=== PATIENT | female | born 1995 | race Caucasian/White ===

== ENCOUNTER → 2017-11-19 | Outpatient (CLI) | payer OTHER ==
[2017-11-19 14:36] LABS: HCG,Quantitative Serum <2.4 mIU/mL; T4, Free (Free Thyroxine) 0.78 ng/dL (0.78-2.19)
== END | disposition home or self-care (01) ==
LOC: LABWHC1 13:38
PROVIDERS: ATTEND Obstetrics & Gynecology
DX: N92.6 Irregular menstruation, unspecified (principal); N91.2 Amenorrhea, unspecified
CPT/HCPCS: 36415; 84439; 84443; 84702

== ENCOUNTER → 2018-03-30 | Outpatient (CLI) | payer OTHER ==
--- NOTE | 2018-03-30 12:28 | US ---
EXAMINATION TYPE: Transabdominal DATE OF EXAM: 12/08/17 COMPARISON: NONE CLINICAL HISTORY: Z36 Confirm dates. Patient states positive home test in the beginning of February. No blood work or test done at the doctor's office per patient. EXAM PERFORMED: Transvaginal (TV) and Transabdominal (TA) EXAM MEASUREMENTS: GESTATIONAL AGE / DATING Physician Established: Not yet established Dates by LMP: (8 weeks/1 days) EDC: 11/08/2018 Dates by First Scan: No previous this is first scan Dates by Current Scan for: No IUP seen at this time MATERNAL ANATOMY Uterus: 8.0 x 3.1 x 4.3 cm Right Ovary: 2.8 x 1.6 x 1.7 cm Left Ovary: 3.2 x 1.7 x 2.8 cm Post CDS / Adnexa: Small amount of free fluid visualized within the posterior cul de sac Presence of free fluid: yes Presence of corpus luteal cyst: No Presence of subchorionic bleed: No GESTATION / SURVEY IUP: No IUP seen at this time Date of LMP: 02/01/2018 per patient Beta HcG (if available): Not available at this time No IUP visualized at this time. Endometrium measures 0.7 cm IMPRESSION: No intrauterine gestational sac or evidence of current intrauterine is seen at this time. G iven the patient's history of positive home test considerations remain for ectopic pregnanc y, spontaneous , or early . Correlation with serum beta hCG level is recommended.
== END | disposition home or self-care (01) ==
LOC: RADUSWWP 11:35
PROVIDERS: ATTEND Obstetrics & Gynecology
DX: Z34.80 Encounter for supervision of other normal pregnancy, unspecified trimester (principal); Z36.9 Encounter for antenatal screening, unspecified; Z3A.00 Weeks of gestation of pregnancy not specified
CPT/HCPCS: 36415; 76801; 76817; 84702

== ENCOUNTER → 2018-05-14 | Outpatient (CLI) | payer OTHER | END | disposition home or self-care (01) | LOC: LABWHC1 11:59 | PROVIDERS: ATTEND Obstetrics & Gynecology | DX: N92.6 Irregular menstruation, unspecified (principal) | CPT/HCPCS: 36415; 84702 ==

== ENCOUNTER 2018-07-27 17:07 | Emergency (ER) | payer OTHER ==
[2018-07-27] MEDS ORDERED: SODIUM CHLORIDE 0.9% 500 ML 500 ML IV ONE (17:52)
--- NOTE | 2018-07-27 17:53 | ED ---
Abdominal Pain HPI - General Chief Complaint: Abdominal Pain Stated Complaint: abdominal pain/8 wks preg Source: patient, RN notes reviewed, old records reviewed Mode of arrival: ambulatory Limitations: no limitations - History of Present Illness Initial Comments: Patient is a 23 year old female with vague cramping abdominal pain for one day. She reports no fevers, chills, or other complaints. She is a 7 weeks , and has not followed with OBGYN at this time. She is a Female, OB is Dr. Starkey. She denies vaginal bleeding. She denies vomiting, changes in stools. She reports her pains feel similiar to brxton aguilar contractions, but tates that it is over both sides of lower abdomen. - Related Data Home Medications Medication Instructions Recorded Confirmed Vit No.124/Iron/Folic 1 tab PO DAILY 04/13/15 07/27/18 [ Vitamin Tablet] Venlafaxine HCl ER [Effexor Xr] 37.5 mg PO DAILY 07/27/18 07/27/18 Allergies Allergy/AdvReac Type Severity Reaction Status Date / Time No Known Allergies Allergy Verified 07/27/18 18:01 Review of Systems ROS Statement: Those systems with pertinent positive or pertinent negative responses have been documented in the HPI. ROS Other: All systems not noted in ROS Statement are negative. Past Medical History Past Medical History: No Reported History Additional Past Medical History / Comment(s): OB history: THis is her first and she has had care with me since 7 weeks. O+, abs neg, Rub Imm, RPR Nr, Hep B neg, HIV NR. normal anatomy US, declined quad, abnormal 1hr with normal 3hr GTT. GBS neg. History of Any Multi-Drug Resistant Organisms: None Reported Past Surgical History: Section, Tonsillectomy Additional Past Surgical History / Comment(s): [place] Teeth 2014. Fatty tumor removed from posterior head- childhood Past Anesthesia/Blood Transfusion Reactions: No Reported Reaction Past Psychological History: Anxiety Smoking Status: Former smoker Past Alcohol Use History: None Reported Past Drug Use History: None Reported - Past Family History Mother Family Medical History: Hypertension General Exam - General Exam Comments Initial Comments: Well appearing 23 year old female, no distress. Limitations: no limitations General appearance: alert, in no apparent distress Head exam: Present: atraumatic, normocephalic, normal inspection Eye exam: Present: normal appearance, PERRL, EOMI. Absent: scleral icterus, conjunctival injection, periorbital swelling ENT exam: Present: normal exam, mucous membranes moist Neck exam: Present: normal inspection. Absent: tenderness, meningismus, lymphadenopathy Respiratory exam: Present: normal lung sounds bilaterally. Absent: respiratory distress, wheezes, rales, rhonchi, stridor Cardiovascular Exam: Present: regular rate, normal rhythm, normal heart sounds. Absent: systolic murmur, diastolic murmur, rubs, gallop, clicks GI/Abdominal exam: Present: soft, normal bowel sounds. Absent: distended, tenderness, guarding, rebound, rigid Back exam: Present: normal inspection Neurological exam: Present: alert, oriented X3, CN II-XII intact Course Vital Signs 07/27/18 07/27/18 07/27/18 17:28 19:12 20:01 Temperature 98.4 F 97.8 F 99.1 F Pulse Rate 66 51 L 64 Respiratory 18 14 20 Rate Blood Pressure 126/69 122/73 110/57 O2 Sat by Pulse 99 99 98 Oximetry 07/27/18 20:55 Temperature 99.9 F H Pulse Rate 61 Respiratory 18 Rate Blood Pressure 128/65 O2 Sat by Pulse 98 Oximetry Medical Decision Making - Medical Decision Making 23 year old female, , 7 weeks presents with abodominal cramping for one day. Denies bleeding, discharge, fevers, chills, or changes in stool. She has no tenderness on exam, appears well. Labs obtained, mild leukocytosis noted. Patient has normal UA. No blood or signs of infection. She has Intrauterine gestational sack. HCG is 8,800. O positive blood type. Discussed at this time, no concern for extopic , and that patient can follow up with Dr. Starkey. Return parameters discussed. - Lab Data Result diagrams: 07/27/18 18:07/27/18 18:19 Lab Results 07/27/18 07/27/18 07/27/18 Range/Units 18:19 18:19 18:19 WBC 13.9 H (3.8-10.6) k/uL RBC 4.43 (3.80-5.40) m/uL Hgb 13.7 (11.4-16.0) gm/dL Hct 39.9 (34.0-46.0) % MCV 90.1 (80.0-100.0) fL MCH 30.9 (25.0-35.0) pg MCHC 34.2 (31.0-37.0) g/dL RDW 12.6 (11.5-15.5) % Plt Count 283 (150-450) k/uL Neutrophils % 57 % Lymphocytes % 34 % Monocytes % 4 % Eosinophils % 2 % Basophils % 1 % Neutrophils # 7.9 H (1.3-7.7) k/uL Lymphocytes # 4.7 (1.0-4.8) k/uL Monocytes # 0.6 (0-1.0) k/uL Eosinophils # 0.3 (0-0.7) k/uL Basophils # 0.1 (0-0.2) k/uL PT (9.0-12.0) sec INR (<1.2) APTT (22.0-30.0) sec Sodium 138 (137-145) mmol/L Potassium 4.4 (3.5-5.1) mmol/L Chloride 101 (98-107) mmol/L Carbon Dioxide 28 (22-30) mmol/L Anion Gap 9 mmol/L BUN 15 (7-17) mg/dL Creatinine 0.60 (0.52-1.04) mg/dL Est GFR (CKD-EPI)AfAm >90 (>60 ml/min/1.73 sqM) Est GFR (CKD-EPI)NonAf >90 (>60 ml/min/1.73 sqM) Glucose 92 (74-99) mg/dL Calcium 9.7 (8.4-10.2) mg/dL Total Bilirubin 0.2 (0.2-1.3) mg/dL AST 18 (14-36) U/L ALT 29 (9-52) U/L Alkaline Phosphatase 42 (38-126) U/L Total Protein 6.7 (6.3-8.2) g/dL Albumin 3.9 (3.5-5.0) g/dL HCG, Quant 8708.6 mIU/mL Urine Color Urine Appearance (Clear) Urine pH (5.0-8.0) Ur Specific [place] (1.001-1.035) Urine Protein (Negative) Urine Glucose (UA) (Negative) Urine Ketones (Negative) Urine Blood (Negative) Urine Nitrite (Negative) Urine Bilirubin (Negative) Urine Urobilinogen (<2.0) mg/dL Ur Leukocyte Esterase (Negative) Blood Type O Positive Blood Type Recheck No 07/27/18 07/27/18 Range/Units 18:19 18:19 WBC (3.8-10.6) k/uL RBC (3.80-5.40) m/uL Hgb (11.4-16.0) gm/dL Hct (34.0-46.0) % MCV (80.0-100.0) fL MCH (25.0-35.0) pg MCHC (31.0-37.0) g/dL RDW (11.5-15.5) % Plt Count (150-450) k/uL Neutrophils % % Lymphocytes % % Monocytes % % Eosinophils % % Basophils % % Neutrophils # (1.3-7.7) k/uL Lymphocytes # (1.0-4.8) k/uL Monocytes # (0-1.0) k/uL Eosinophils # (0-0.7) k/uL Basophils # (0-0.2) k/uL PT 10.0 (9.0-12.0) sec INR 1.0 (<1.2) APTT 24.8 (22.0-30.0) sec Sodium (137-145) mmol/L Potassium (3.5-5.1) mmol/L Chloride (98-107) mmol/L Carbon Dioxide (22-30) mmol/L Anion Gap mmol/L BUN (7-17) mg/dL Creatinine (0.52-1.04) mg/dL Est GFR (CKD-EPI)AfAm (>60 ml/min/1.73 sqM) Est GFR (CKD-EPI)NonAf (>60 ml/min/1.73 sqM) Glucose (74-99) mg/dL Calcium (8.4-10.2) mg/dL Total Bilirubin (0.2-1.3) mg/dL AST (14-36) U/L ALT (9-52) U/L Alkaline Phosphatase (38-126) U/L Total Protein (6.3-8.2) g/dL Albumin (3.5-5.0) g/dL HCG, Quant mIU/mL Urine Color Light Yellow Urine Appearance Clear (Clear) Urine pH 6.5 (5.0-8.0) Ur Specific [place] 1.011 (1.001-1.035) Urine Protein Negative (Negative) Urine Glucose (UA) Negative (Negative) Urine Ketones Negative (Negative) Urine Blood Negative (Negative) Urine Nitrite Negative (Negative) Urine Bilirubin Negative (Negative) Urine Urobilinogen <2.0 (<2.0) mg/dL Ur Leukocyte Esterase Negative (Negative) Blood Type Blood Type Recheck Disposition Clinical Impression: Abdominal pain affecting Disposition: HOME SELF-CARE Condition: Good Instructions: Abdominal Pain in (ED) Additional Instructions: Patient advised to s follow-up with PCP and OBGYN. Return to emergency department if any alarming signs or symptoms occur. Is patient prescribed a controlled substance at d/c from ED?: No When asked, does pt state using other controlled substances?: No If opioid is for acute pain is fill amount 7 days or less?: No If Rx opioid, was Start Talking consent form obtained?: No Referrals: Medardo Helms MD [Primary Care Provider] - 1-2 days Sienna Starkey DO [Doctor of Osteopathic Medicine] - 1-2 days Time of Disposition: 20:37
[2018-07-27 18:43] LABS: ALT 29 U/L (9-52); AST 18 U/L (14-36); Albumin 3.9 g/dL (3.5-5.0); Alkaline Phosphatase 42 U/L (38-126); Anion Gap 9 mmol/L; Basophils # (A) 0.1 k/uL (0-0.2); Basophils % (A) 1 %; Blood Urea Nitrogen 15 mg/dL (7-17); Calcium 9.7 mg/dL (8.4-10.2); Carbon Dioxide 28 mmol/L (22-30); Chloride 101 mmol/L (98-107); Eosinophils # (A) 0.3 k/uL (0-0.7); Eosinophils % (A) 2 %; Glucose 92 mg/dL (74-99); HCT 39.9 % (34.0-46.0); HGB 13.7 gm/dL (11.4-16.0); Lymphocytes # (A) 4.7 k/uL (1.0-4.8); Lymphocytes % (A) 34 %; MCH 30.9 pg (25.0-35.0); MCHC 34.2 g/dL (31.0-37.0); MCV 90.1 fL (80.0-100.0); Mean Platelet Volume 7.3; Monocytes # (A) 0.6 k/uL (0-1.0); Monocytes % (A) 4 %; Neutrophils # (A) 7.9 k/uL (1.3-7.7); Neutrophils % (A) 57 %; Partial Thromboplastin Time 24.8 sec (22.0-30.0); Platelet Count 283 k/uL (150-450); Potassium 4.4 mmol/L (3.5-5.1); RBC 4.43 m/uL (3.80-5.40); RDW 12.6 % (11.5-15.5); Sodium 138 mmol/L (137-145); Total Bilirubin 0.2 mg/dL (0.2-1.3); Total Protein 6.7 g/dL (6.3-8.2); WBC 13.9 k/uL (3.8-10.6)
[2018-07-27 19:00] LABS: HCG,Quantitative Serum 8708.6 mIU/mL
[2018-07-27 19:19] LABS: Appearance,Urine Clear (Clear); Bilirubin,Urine Negative (Negative); Blood,Urine Negative (Negative); Color,Urine Light Yellow; Glucose,Urine (UA) Negative (Negative); Ketones,Urine Negative (Negative); Leukocyte Esterase,Urine Negative (Negative); Nitrite,Urine Negative (Negative); PH, Urine 6.5 (5.0-8.0); Protein,Urine Negative (Negative); Specific Gravity,Urine 1.011 (1.001-1.035); Urobilinogen,Urine <2.0 mg/dL (<2.0)
--- NOTE | 2018-07-27 20:30 | US ---
EXAMINATION TYPE: Transabdominal DATE OF EXAM: 12/08/17 COMPARISON: NONE CLINICAL HISTORY: Pain. Cramping EXAM PERFORMED: Transvaginal (TV) and Transabdominal (TA) EXAM MEASUREMENTS: GESTATIONAL AGE / DATING Physician Established: Not yet established Dates by LMP: (7 weeks/1 days) EDC: 06/07/2018 Dates by First Scan: No previous this is first scan Dates by Current Scan for: No IUP seen at this time MATERNAL ANATOMY Uterus: 7.7 x 4.0 x 5.5 cm. Within the fundal endometrial cavity is an anechoic smoohtly-marginated g estational sac measuring 18 x 16 x 13 mm. Right Ovary: 3.3 x 2.4 x 1.8cm Left Ovary: 3.3 x 2.3 x 2.0 cm. Post CDS / Adnexa: wnl Presence of free fluid: no Presence of corpus luteal cyst: yes Presence of subchorionic bleed: no GESTATION / SURVEY MSD: 0.98cm too small to calculate dates. No yolk sac or embryonic pole visualized. Beta HcG (if available): Not available at this time IMPRESSION: POSITIVE FOR INTRAUTERINE GESTATIONAL SAC.
[2018-07-27 20:56] VITALS: BP 128/65; PULSE 61; RESP 18; TEMP 99.9
== END 2018-07-27 20:55 | disposition home or self-care (01) ==
LOC: EC 17:07
DX: O99.89 Other specified diseases and conditions complicating pregnancy, childbirth and the puerperium (principal); R10.31 Right lower quadrant pain; R10.32 Left lower quadrant pain; O99.111 Other diseases of the blood and blood-forming organs and certain disorders involving the immune mechanism complicating pregnancy, first trimester; D72.829 Elevated white blood cell count, unspecified; Z67.40 Type O blood, Rh positive; O99.341 Other mental disorders complicating pregnancy, first trimester; F41.9 Anxiety disorder, unspecified; Z87.891 Personal history of nicotine dependence; Z79.899 Other long term (current) drug therapy; Z3A.01 Less than 8 weeks gestation of pregnancy
CPT/HCPCS: 36415; 76801; 76817; 80053; 81003; 84702; 85025; 85610; 85730; 86900; 86901; 96360; 99284

== ENCOUNTER → 2018-08-10 | Outpatient (CLI) | payer OTHER ==
--- NOTE | 2018-08-10 15:49 | US ---
EXAMINATION TYPE: Transabdominal DATE OF EXAM: 12/08/17 COMPARISON: NONE CLINICAL HISTORY: Z36 Confirm Dates. Confirm dates EXAM PERFORMED: Transabdominal (TA) EXAM MEASUREMENTS: GESTATIONAL AGE / DATING Dates by LMP: (9 weeks/1 days) EDC: 03/14/2019 Dates by Current Scan for: ( 7 weeks/2 days) EDC: 03/27/2019 MATERNAL ANATOMY Uterus: 11.6 x 5.8 x 4.2 cm Right Ovary: 2.8 x 2.2 x 1.7 cm Left Ovary: 3.1 x 1.8 x 2.2 cm Post CDS / Adnexa: no free fluid Presence of free fluid: no Presence of corpus luteal cyst: left ovarian lesion = 1.3 x 1.2 x 1.2 cm Presence of subchorionic bleed: no GESTATION / SURVEY CRL: 10.8 cm (7 weeks/2 days) MSD: seen, not measured Yolk Sac (normal less than 6mm): 2.2 mm Heart Rate: 147 bpm Rhythm: Normal IUP: Viable IUP Date of LMP: 06/07/2018, Beta HcG (if available): Not available at this time GS, YS and CRL seen. Single IUP measuring 7 weeks 2 days. IMPRESSION: Single viable intrauterine patency corresponding to ultrasound age 7 weeks 2 days with estimated date of delivery by today's exam of 03/27/2019
== END | disposition home or self-care (01) ==
LOC: RADUSWWP 14:15
PROVIDERS: ATTEND Obstetrics & Gynecology
DX: Z36.89 Encounter for other specified antenatal screening (principal); Z3A.01 Less than 8 weeks gestation of pregnancy
CPT/HCPCS: 76801

== ENCOUNTER 2019-03-22 06:05 | Inpatient (IN) | payer OTHER ==
[2019-03-21 09:56] VITALS: BMI 35.6
[2019-03-22] MEDS ORDERED: CITRIC ACID-SODIUM CITRATE 15 ML CUP PO ONE (06:15)
[2019-03-22] MEDS ORDERED: LACTATED RINGERS 1,000 ML IV ONE (06:15)
[2019-03-22] MEDS ORDERED: ceFAZolin IN SWFI 2 GM/20 ML SYRINGE IVP ONE (06:15)
[2019-03-22 06:46] LABS: Basophils # (A) 0.1 k/uL (0-0.2); Basophils % (A) 1 %; Eosinophils # (A) 0.3 k/uL (0-0.7); Eosinophils % (A) 2 %; HCT 38.4 % (34.0-46.0); HGB 13.1 gm/dL (11.4-16.0); Lymphocytes # (A) 3.7 k/uL (1.0-4.8); Lymphocytes % (A) 28 %; MCV 82.2 fL (80.0-100.0); Monocytes # (A) 0.5 k/uL (0-1.0); Monocytes % (A) 4 %; Neutrophils # (A) 8.4 k/uL (1.3-7.7); Neutrophils % (A) 63 %; Platelet Count 220 k/uL (150-450); RBC 4.67 m/uL (3.80-5.40); RDW 14.7 % (11.5-15.5); WBC 13.4 k/uL (3.8-10.6)
[2019-03-22] MEDS: LACTATED RINGERS 1,000 ML IV SCH ×4 (08:02→19:33)
[2019-03-22] MEDS ORDERED: PHENYLEPHRINE-0.9% NACL SYG 1 MG/10 ML SYRINGE ONE (08:09)
[2019-03-22] MEDS ORDERED: OXYTOCIN 10 UNIT/ML 1 ML VIAL ONE (08:09)
[2019-03-22] MEDS ORDERED: KETOROLAC 30 MG/ML 1 ML VIAL ONE (08:09)
[2019-03-22] MEDS ORDERED: DEXAMETHASONE SOD PHOS (MDV) 100 MG/10 ML VIAL ONE (08:09)
[2019-03-22] MEDS ORDERED: ONDANSETRON 4 MG/2 ML VIAL ONE (08:09)
[2019-03-22] MEDS ORDERED: NALBUPHINE 10 MG/ML (1 ML AMP) ONE (08:09)
[2019-03-22] MEDS ORDERED: ePHEDrine SULFATE/0.9% NACL/PF 50 MG/5 ML SYRINGE IV ONE (08:09)
[2019-03-22] MEDS ORDERED: MORPHINE SULFATE (PF) 0.3 MG/0.3 ML SYR ONE (08:09)
[2019-03-22] MEDS ORDERED: ONDANSETRON 4 MG/2 ML VIAL IVP PRN (08:39)
[2019-03-22] MEDS ORDERED: HYDROmorphone 0.5 MG/0.5 ML SYRINGE IVP PRN (08:39)
[2019-03-22] MEDS ORDERED: KETOROLAC 30 MG/ML 1 ML VIAL IVP PRN (08:39)
[2019-03-22] MEDS ORDERED: NALOXONE 0.4 MG/ML 1 ML VIAL IV PRN (08:39)
[2019-03-22] MEDS ORDERED: diphenhydrAMINE 50 MG CAP PO PRN (08:58)
[2019-03-22] MEDS ORDERED: ZOLPIDEM 5 MG TAB PO PRN (08:58)
[2019-03-22] MEDS ORDERED: HYDROcodone/APAP 7.5-325MG 1 EACH TAB PO PRN (08:58)
[2019-03-22] MEDS ORDERED: METOCLOPRAMIDE 5 MG/ML 2 ML VIAL IVP PRN (08:58)
[2019-03-22] MEDS ORDERED: diphenhydrAMINE 50 MG/ML 1 ML VIAL IVP PRN ×2 (08:58)
[2019-03-22] MEDS ORDERED: diphenhydrAMINE 25 MG CAP PO PRN (08:58)
[2019-03-22] MEDS ORDERED: OXYTOCIN 20 UNITS/1000 ML NS 1,000 ML IV SCH (09:00)
--- NOTE | 2019-03-22 12:35 | P.HPOB ---
History of Present Illness H&P Date: 03/22/19 Chief Complaint: repeat low transverse 24-year-old presents at 39 weeks and 2 days for repeat low transverse C- section. Review of Systems All systems: negative Constitutional: Denies chills, Denies fever Eyes: denies blurred vision, denies pain Ears, nose, mouth and throat: Denies headache, Denies sore throat Cardiovascular: Denies chest pain, Denies shortness of breath Respiratory: Denies cough Gastrointestinal: Denies abdominal pain, Denies diarrhea, Denies nausea, Denies vomiting Genitourinary: Denies dysuria, Denies hematuria Musculoskeletal: Denies myalgias Integumentary: Denies pruritus, Denies rash Neurological: Denies numbness, Denies weakness Psychiatric: Denies anxiety, Denies depression Endocrine: Denies fatigue, Denies weight change Past Medical History Past Medical History: Musculoskeletal Disorder Additional Past Medical History / Comment(s): HX IRREG HR 2012-, ECHO NL. C/O NUMBING IN AVNI FINGERS, POSS CTS. MILD EDEMA FEET. C/O HEARTBURN. Obstetrical history: First was a primary . This is her second and she's had care with me since the first trimester. Blood type is O+, amylase negative, rubella immune, hep is B-, HIV nonreactive, RPR nonreactive, GBS positive. History of Any Multi-Drug Resistant Organisms: None Reported Past Surgical History: Section, Tonsillectomy Additional Past Surgical History / Comment(s): [place] Teeth 2013. Fatty tumor removed from posterior head - childhood Past Anesthesia/Blood Transfusion Reactions: No Reported Reaction Past Psychological History: Anxiety, Depression Additional Psychological History / Comment(s): NO CURRENT [place] Smoking Status: Former smoker Past Alcohol Use History: None Reported Additional Past Alcohol Use History / Comment(s): SMOKED 2 YEARS, 3/4 PPD, QUIT 06/2018 Past Drug Use History: None Reported - Past Family History Mother Family Medical History: Hypertension Medications and Allergies Home Medications Medication Instructions Recorded Confirmed Type Vit No.124/Iron/Folic 2 tab PO DAILY 04/13/15 03/22/19 History [ Vitamin Tablet] Acyclovir [Zovirax] 400 mg PO BID 03/21/19 03/21/19 History Calcium Carbonate [Tums] 750 mg PO QID PRN 03/21/19 03/22/19 History Ranitidine HCl [Zantac] 75 mg PO DAILY PRN 03/21/19 03/22/19 History Allergies Allergy/AdvReac Type Severity Reaction Status Date / Time tuberculin, purified protein Allergy RED, WELTED Verified 03/21/19 09:51 deriva Exam Osteopathic Statement: *. No significant issues noted on an osteopathic structural exam other than those noted in the History and Physical/Consult. Vital Signs Temp Pulse Resp BP Pulse Ox 03/22/19 10:57 97.1 F L 52 L 16 115/59 99 03/22/19 10:27 96.9 F L 74 16 114/63 98 03/22/19 09:57 54 L 16 112/56 97 03/22/19 09:42 96.7 F L 68 16 109/61 97 03/22/19 09:37 16 97 03/22/19 09:27 16 106/58 03/22/19 09:12 65 18 95/48 03/22/19 08:57 97.1 F L 67 18 108/51 03/22/19 07:23 96.9 F L 85 18 137/90 Intake and Output 03/21/19 03/22/19 03/22/19 22:59 06:59 14:59 Output Total 60 Balance -60 Output: Urine 60 Other: Voiding Method Indwelling Catheter Heart: Regular rate and rhythm Lungs: Clear to auscultation bilaterally Abdomen: Soft, nontender Extremities: Negative Homans sign Results Result Diagrams: 03/22/19 06:22 Abnormal Lab Results - Last 24 Hours (Table) 03/22/19 Range/Units 06:22 WBC 13.4 H (3.8-10.6) k/uL Neutrophils # 8.4 H (1.3-7.7) k/uL Assessment and Plan (1) Previous section Current Visit: Yes Status: Acute Code(s): Z98.891 - HISTORY OF UTERINE SCAR FROM PREVIOUS SURGERY SNOMED Code(s): 552869490 (2) 39 weeks gestation of Current Visit: Yes Status: Acute Code(s): Z3A.39 - 39 WEEKS GESTATION OF SNOMED Code(s): 03730108 Plan: 1. Prep for repeat low transverse
--- NOTE | 2019-03-22 12:36 | P.OP ---
Date of Procedure: 03/22/19 Preoperative Diagnosis: 1. at 39 weeks and 2 days 2. Previous Postoperative Diagnosis: 1. at 39 weeks and 2 days 2. Previous Procedure(s) Performed: Repeat low transverse Anesthesia: spinal Surgeon: Sienna Starkey Hadoop Java Developer #1: Adrian Landry Estimated Blood Loss (ml): 450 IV fluids (ml): 600 Urine output (ml): 100 Pathology: none sent Condition: stable Disposition: floor Operative Findings: Viable male, Apgars 8, 9, weight 7 lbs. 10 oz. Normal uterus, tubes, ovaries. Description of Procedure: Patient was taken to the operating room where spinal anesthesia was found be adequate. She was prepped and draped in normal sterile fashion in dorsal supine position with a leftward tilt. Pfannenstiel skin incision was made the scalpel and carried through to the underlying layer of fascia with the scalpel. Fascia was incised in midline and carried bilaterally with the [place] scissors. The superior aspect of the fascial incision was grasped with [place] clamps elevated and the underlying rectus muscles dissected off with the Hampton's. Attention was then turned to inferior aspect of same incision which in a similar fashion was grasped tented up and the underlying rectus muscles dissected off with the Hampton's. The rectus muscles were the midline and the peritoneum was identified tented up and entered sharply with the scalpel. The incision was extended superiorly and inferiorly with good visualization of the bladder. The bladder blade was inserted and the vesicouterine peritoneum was incised the Metzenbaums then carried bilaterally and bladder flap created digitally. A low transverse incision was then made on the uterus with the scalpel. This was carried bilaterally and digital manner. Infant's head delivered atraumatically, nose and mouth bulb suctioned, cord clamped and cut, handed off to waiting nurses. Apgars 8,9, weight 7 lbs. 10 oz. Placenta delivered manually, intact with three-vessel cord. The uterus is exteriorized and cleared of all clots and debris. The uterine incision was closed with 0 Vicryl in a running locked fashion. Second layer of the same sutures used in imbricating fashion to obtain excellent hemostasis. Bladder flap was then reapproximated using 2-0 Vicryl in a running fashion. Both ovaries and tubes appeared normal. The uterus was placed back into the abdomen. The peritoneum was reapproximated using 2-0 Vicryl in a running fashion. The muscles were reapproximated using 2- 0 Vicryl in interrupted fashion. The fascia was reapproximated using 0 Vicryl in a running fashion. The subcutaneous tissues closed with 3-0 Vicryl running fashion. The skin was closed gunner. Patient tolerated the procedure well, sponge and instrument counts were correct times 2 and she was taken to the recovery room in stable condition.
[2019-03-22] MEDS: SENNOSIDES-DOCUSATE SODIUM 1 EACH TAB PO SCH (19:26)
[2019-03-23 07:26] LABS: Basophils # (A) 0.1 k/uL (0-0.2); Basophils % (A) 0 %; Eosinophils # (A) 0.1 k/uL (0-0.7); Eosinophils % (A) 1 %; HCT 32.3 % (34.0-46.0); HGB 10.7 gm/dL (11.4-16.0); Lymphocytes # (A) 4.1 k/uL (1.0-4.8); Lymphocytes % (A) 23 %; MCH 27.7 pg (25.0-35.0); MCHC 33.2 g/dL (31.0-37.0); MCV 83.6 fL (80.0-100.0); Mean Platelet Volume 9.5; Monocytes # (A) 0.8 k/uL (0-1.0); Monocytes % (A) 4 %; Neutrophils % (A) 69 %; Platelet Count 191 k/uL (150-450); RBC 3.86 m/uL (3.80-5.40); RDW 14.3 % (11.5-15.5); WBC 17.4 k/uL (3.8-10.6)
--- NOTE | 2019-03-23 08:07 | P.PN ---
Progress Note - Text Progress Note Date: 03/23/19 POD 1 from c section with duramorph spinal. doing well, pain under control. ambulating, tolerating diet. No lower ext weakness, parasthesia, or numbness. Able to urinate. no sedation. lower ext strength is 5/5
[2019-03-23] MEDS: SENNOSIDES-DOCUSATE SODIUM 1 EACH TAB PO SCH ×2 (08:10→20:15)
[2019-03-23] MEDS: IBUPROFEN 600 MG TAB PO PRN ×2 (08:10→18:05)
[2019-03-23] MEDS: SIMETHICONE 80 MG CHEWABLE PO PRN ×2 (08:10→15:31)
[2019-03-23] MEDS: ACETAMINOPHEN TAB 325 MG TAB PO PRN (23:11)
[2019-03-24] MEDS: IBUPROFEN 600 MG TAB PO PRN ×2 (01:20→11:42)
[2019-03-24] MEDS: ACETAMINOPHEN TAB 325 MG TAB PO PRN (06:15)
[2019-03-24] MEDS: SENNOSIDES-DOCUSATE SODIUM 1 EACH TAB PO SCH (08:48)
--- NOTE | 2019-03-24 09:29 | P.DS ---
Providers Date of admission: 03/22/19 06:05 Expected date of discharge: 03/24/19 Attending physician: Sienna Starkey Primary care physician: Stated None - Discharge Diagnosis(es) (1) Previous section Current Visit: Yes Status: Resolved (2) 39 weeks gestation of Current Visit: Yes Status: Resolved (3) Status post repeat low transverse section Current Visit: Yes Status: Acute Hospital Course: Patient presented for repeat low transverse . She underwent this procedure without complication. Her postoperative course was uncomplicated as well. She'll be discharged home day #2 in stable condition to follow-up with me in one week. She is passing flatus tolerating regular diet, voiding and ambulating without difficulty. Her incision is clean, dry, intact. Plan - Discharge Summary Discharge Rx Participant: No New Discharge Prescriptions: New Ibuprofen [Motrin] 600 mg PO Q6HR PRN #30 tab PRN Reason: Mild Pain Or Fever >= 100.5 HYDROcodone/APAP 7.5-325MG [Keeling 7.5-325] 1 each PO Q6H PRN #12 tab PRN Reason: Severe Pain No Action Vit No.124/Iron/Folic [ Vitamin Tablet] 2 tab PO DAILY Ranitidine HCl [Zantac] 75 mg PO DAILY PRN PRN Reason: Heartburn Calcium Carbonate [Tums] 750 mg PO QID PRN PRN Reason: Heartburn Acyclovir [Zovirax] 400 mg PO BID Discharge Medication List Vit No.124/Iron/Folic [ Vitamin Tablet] 2 tab PO DAILY 04/13/15 [History] Acyclovir [Zovirax] 400 mg PO BID 03/21/19 [History] Calcium Carbonate [Tums] 750 mg PO QID PRN 03/21/19 [History] Ranitidine HCl [Zantac] 75 mg PO DAILY PRN 03/21/19 [History] HYDROcodone/APAP 7.5-325MG [[place] 7.5-325] 1 each PO Q6H PRN #12 tab 03/24/19 [Rx] Ibuprofen [Motrin] 600 mg PO Q6HR PRN #30 tab 03/24/19 [Rx] Follow up Appointment(s)/Referral(s): Sienna Starkey DO [Doctor of Osteopathic Medicine] - 1 Week Discharge Disposition: HOME SELF-CARE
--- NOTE | 2019-03-24 09:30 | P.PNOBGPC ---
Subjective - Subjective Principal diagnosis: Status post repeat low transverse postop day #1 Interval history: Patient seen and examined. She is passing flatus and tolerating regular food. She denies nausea, vomiting, chest pain, shortness of breath or calf pain. Patient reports: Reports appetite normal, Reports voiding normally, Reports pain well controlled, Reports ambulating normally Margie: doing well Objective - Vital Signs Latest vital signs: Vital Signs Temp Pulse Resp BP Pulse Ox 03/24/19 00:00 98.5 F 99 16 140/73 98 03/23/19 16:00 98.3 F 94 18 143/79 03/23/19 11:26 97.7 F 82 16 130/83 - Exam Lungs: bilateral: normal Chest: Normal S1, Normal S2 Extremities: Present: normal Abdomen: Present: normal appearance, soft. Absent: distention, tenderness Incision: Present: normal, dry, intact Uterus: Present: normal, firm Assessment and Plan (1) Previous section Current Visit: Yes Status: Resolved Code(s): Z98.891 - HISTORY OF UTERINE SCAR FROM PREVIOUS SURGERY SNOMED Code(s): 043925182 (2) 39 weeks gestation of Current Visit: Yes Status: Resolved Code(s): Z3A.39 - 39 WEEKS GESTATION OF SNOMED Code(s): 80662961 (3) Status post repeat low transverse section Current Visit: Yes Status: Acute Code(s): Z98.891 - HISTORY OF UTERINE SCAR FROM PREVIOUS SURGERY SNOMED Code(s): 949300984 Plan: 1. Continue postop care
[2019-03-24 09:34] VITALS: PULSE 95; RESP 18; TEMP 98.3
[2019-03-24 13:58] VITALS: BP 128/71
== END 2019-03-24 14:15 | disposition home or self-care (01) | DRG 788 ==
LOC: 4FBP 06:05
PROVIDERS: ADMIT Obstetrics & Gynecology; ATTEND Obstetrics & Gynecology
PROC: 10D00Z1 Extraction of Products of Conception, Low, Open Approach (ICD-10-PCS; principal; 2019-03-22 08:00)
DX: O34.211 Maternal care for low transverse scar from previous cesarean delivery (principal); N85.8 Other specified noninflammatory disorders of uterus; Z3A.39 39 weeks gestation of pregnancy; Z37.0 Single live birth; O99.824 Streptococcus B carrier state complicating childbirth; Z79.899 Other long term (current) drug therapy; Z98.890 Other specified postprocedural states; Z87.891 Personal history of nicotine dependence; Z86.59 Personal history of other mental and behavioral disorders; Z82.49 Family history of ischemic heart disease and other diseases of the circulatory system; Z88.7 Allergy status to serum and vaccine
CPT/HCPCS: 85025; 86850; 86900; 86901

== ENCOUNTER → 2020-09-21 | Outpatient (CLI) | payer OTHER | END | disposition home or self-care (01) | LOC: LABWHC1 08:43 | PROVIDERS: ATTEND Obstetrics & Gynecology | DX: N92.6 Irregular menstruation, unspecified (principal) | CPT/HCPCS: 36415; 84702 ==

== ENCOUNTER → 2022-09-18 | Outpatient (CLI) | payer OTHER ==
--- NOTE | 2022-09-18 15:50 | US ---
EXAMINATION TYPE: US pelvic complete DATE OF EXAM: 09/18/2022 COMPARISON: NONE CLINICAL HISTORY: 27-year-old female R10.2 PELVIC AND PERINEAL PAIN. Patient states she gets irregula r menses and abnormal hair growth. TECHNIQUE: Transabdominal (TA). Transabdominal sonographic images of the pelvis were acquired. Date of LMP: 08/17/2022, FINDINGS: EXAM MEASUREMENTS: Uterus: 9.8 x 4.0 x 2.5 cm Endometrial Stripe: 0.3 cm Right Ovary: 3.2 x 2.1 x 2.0 cm Left Ovary: 3.3 x 2.0 x 2.0 cm 1. Uterus: Anteverted. Upper limits of normal in size. 2. Endometrium: wnl 3. Right Ovary: wnl 4. Left Ovary: wnl 5. Bilateral Adnexa: wnl 6. Posterior cul-de-sac: no free fluid IMPRESSION: Unremarkable transabdominal sonographic examination of the pelvis.
== END | disposition home or self-care (01) ==
LOC: RADUSWWP 10:14 → MERGE 10:20
PROVIDERS: ATTEND Obstetrics & Gynecology
DX: R10.2 Pelvic and perineal pain (principal)
CPT/HCPCS: 76856

== ENCOUNTER 2025-01-15 18:10 | Outpatient (CLI) | payer OTHER ==
[2025-01-15 18:44] LABS: Appearance,Urine Cloudy (Clear); Bacteria,Urine Occasional /hpf; Bilirubin,Urine Negative (Negative); Blood,Urine Negative (Negative); Color,Urine Colorless; Glucose,Urine (UA) Negative (Negative); Ketones,Urine Negative (Negative); Leukocyte Esterase,Urine Large (Negative); Nitrite,Urine Negative (Negative); PH, Urine 6.5 (5.0-8.0); Protein,Urine Negative (Negative); RBC,Urine 32 /hpf (0-5); Specific Gravity,Urine 1.003 (1.001-1.035); Squamous Epithelial Cell,Urine 3 /hpf (0-4); Urobilinogen,Urine <2.0 mg/dL (<2.0); WBC,Urine 7 /hpf (0-5)
[2025-01-15 19:06] LABS: Creatinine,Urine Random 13.3 mg/dL; Protein/Creatinine Ratio,Urine 0.977
[2025-01-15] MEDS: LACTATED RINGERS 1,000 ML IV ONE (19:07)
[2025-01-15 19:13] LABS: Basophils # (A) 0.12 10*3/uL (0.00-0.10); Basophils % (A) 0.8 %; Eosinophils # (A) 0.32 10*3/uL (0.04-0.35); HCT 38.1 % (37.2-46.3); HGB 13.3 g/dL (12.0-15.0); Lymphocytes # (A) 3.84 10*3/uL (0.90-5.00); Lymphocytes % (A) 24.5 %; MCH 29.8 pg (27.0-32.0); MCHC 34.9 g/dL (32.0-37.0); MCV 85.2 fL (80.0-97.0); Monocytes # (A) 0.99 10*3/uL (0.20-1.00); Monocytes % (A) 6.3 %; Neutrophils # (A) 10.08 10*3/uL (1.80-7.70); Neutrophils % (A) 64.4 %; Platelet Count 217 10*3/uL (140-440); RBC 4.47 10*6/uL (4.10-5.20); RDW 13.1 % (11.5-14.5); WBC 15.66 10*3/uL (4.50-10.00)
[2025-01-15 19:23] LABS: ALT 21 U/L (4-34); African American GFR (CKD) >90 (>60 ml/min/1.73 sqM); Blood Urea Nitrogen 7 mg/dL (7-17); Non-African American GFR(CKD) >90 (>60 ml/min/1.73 sqM); Uric Acid 3.4 mg/dL (3.7-7.4)
[2025-01-15 19:25] LABS: AST 33 U/L (14-36); LDH 276 U/L (120-246)
[2025-01-15 20:12] VITALS: BP 157/83; PULSE 100; RESP 16; TEMP 97.5
--- NOTE | 2025-01-18 20:26 | P.MSEPDOC ---
Presenting Problems - Arrival Data Date of Arrival on Unit: 01/15/25 Time of Arrival on Unit: 18:05 Mode of Transport: Ambulatory - Complaint OB-Reason for Admission/Chief Complaint: Possible Onset of Labor Comment: Pt states that she has been having some cramping/pain since this morning and wanted to get checked out. Medical History - Information : 3 Para: 2 Term: 2 : 0 Abortions: Spontaneous or Elective: 0 Number of Living Children: 2 - Gestational Age Gestational Age by SHANNAN (wks/days): 36 Weeks and 6 Days Review of Systems - Review of Systems Constitutional: No problems Breast: No problems ENT: No problems Cardiovascular: No problems Respiratory: No problems Gastrointestinal: No problems Genitourinary: No problems Musculoskeletal: No problems Neurological: No problems Skin: No problems Vital Signs - Temperature Temperature: 97.5 F Temperature Source: Oral - Pulse Pulse Oximetery Pulse Rate: 100 Pulse Assessment Method: Pulse Oximetry - Respirations Respiratory Rate: 16 Oxygen Delivery Method: Room Air - Blood Pressure Sitting Blood Pressure: 157/83 Blood Pressure Mean: 107 Blood Pressure Source: Automatic Cuff - Comment Vital Signs Comment: repeat b/ps 141/76 148/93, 136/76. PIH labs were done. Medical Screen Scoring - Cervical Exam Dilation (cm): 0 Station: -4 Membranes: Intact - Uterine Contractions Intensity: Mild Resting: Soft to palpation - Assessment - Baby A Baseline FHR: 140 Heart Rate - NICHD Category: Category I (Normal) NST: Reactive Physician Notification - Physician Notified Physician Notified Date: 01/15/25 Physician Notified Time: 18:44 Physician: Robina Hartman New Order Received: Yes - Notification Comment Comment: Called and reported pt's complaints, FHR pattern, contraction pattern, and vital signs to Dr. Hartman. Orders to start IV, fluid bolus, and draw PIH labs. To call back with results. 1928 Dr. Hartman called with update, lab and urine results. RN reported on contractions lab and urine results, contractions are irregular patient states during a contraction rating pain 2/10. Reactive NST. Dr. Hartman requests for patient to be rechecked and called with results. Dr. Hartman called with results of cervical exam. Patients cervix remains closed. Patients perineum noted to be red, and irritated with a copious amount of thick white discharge. Orders to discharge patient home with instruction to fruit or nut picker antibiotic script from pharmacy. And keep follow up appointment in office with Lalito next week. Maternal Triage Index - Maternal Triage Index Presenting for scheduled procedure w/no complaint: No - Stat/Priority 1 Stat Priority 1: No - Urgent/Priority 2 Urgent Priority 2: No - Prompt/Priority 3 Prompt Priority 3: No - Non-Urgent/Priority 4 Non-Urgent Priority 4: Yes Criteria Met for Priority 4: Called and reported pt's complaints, FHR pattern, contraction pattern, and vital signs to Dr. Hartman. Orders to start IV, fluid bolus, and draw PIH labs. To call back with results. Disposition - Disposition OB Disposition: Discharge to home Discharge Date: 01/15/25 Discharge Time: 19:52 I agree with the RN Medical Screening Exam: Yes Physician's MSE Comment: I have neither seen no examined the patient Case reviewed; plan agreed upon as documented in EMR&OBIX.: Yes Diagnosis: GESTATIONAL HTN W/O SIGNIFICANT PROTEINURIA, THIRD TRIMESTER
== END 2025-01-15 19:52 | disposition home or self-care (01) ==
LOC: FBPOP 18:10
PROVIDERS: ATTEND Obstetrics & Gynecology
DX: O47.02 False labor before 37 completed weeks of gestation, second trimester (principal); Z3A.36 36 weeks gestation of pregnancy; Z87.891 Personal history of nicotine dependence; Z88.8 Allergy status to other drugs, medicaments and biological substances
CPT/HCPCS: 59025; 96360; 36415; 82570; 84156; 82565; 83615; 84450; 84460; 84520; 84550; 85025; 81001; G0463; 99213

== ENCOUNTER 2025-01-17 11:10 | Inpatient (IN) | payer OTHER ==
[2025-01-17 12:41] LABS: Basophils % (A) 0.7 %; Eosinophils # (A) 0.23 10*3/uL (0.04-0.35); Eosinophils % (A) 1.7 %; HCT 37.7 % (37.2-46.3); Lymphocytes # (A) 2.92 10*3/uL (0.90-5.00); Lymphocytes % (A) 21.8 %; MCH 29.6 pg (27.0-32.0); MCHC 34.5 g/dL (32.0-37.0); MCV 85.9 fL (80.0-97.0); Mean Platelet Volume 11.9 fL (9.5-12.2); Monocytes # (A) 0.77 10*3/uL (0.20-1.00); Monocytes % (A) 5.7 %; Neutrophils # (A) 9.13 10*3/uL (1.80-7.70); Neutrophils % (A) 68.2 %; Platelet Count 218 10*3/uL (140-440); RBC 4.39 10*6/uL (4.10-5.20); RDW 13.2 % (11.5-14.5)
[2025-01-17 12:48] LABS: ALT 20 U/L (4-34); AST 23 U/L (14-36); African American GFR (CKD) >90 (>60 ml/min/1.73 sqM); Blood Urea Nitrogen 7 mg/dL (7-17); LDH 189 U/L (120-246); Non-African American GFR(CKD) >90 (>60 ml/min/1.73 sqM); Uric Acid 4.1 mg/dL (3.7-7.4)
[2025-01-17 12:58] LABS: Creatinine,Urine Random 61.7 mg/dL; Protein/Creatinine Ratio,Urine 0.276
[2025-01-17 13:09] LABS: INR 0.9 (<1.2); Partial Thromboplastin Time 24.2 sec (22.0-30.0); Prothrombin Time 10.1 sec (10.0-12.5)
[2025-01-17] MEDS ORDERED: OXYTOCIN 10 UNIT/ML 1 ML VIAL IM PRN (14:21)
[2025-01-17] MEDS ORDERED: CARBOPROST TROMETHAMINE 250 MCG/ML 1 ML AMP IM PRN (14:21)
[2025-01-17] MEDS ORDERED: METHYLERGONOVINE 0.2 MG/ML 1 ML AMP IM PRN (14:21)
[2025-01-17] MEDS ORDERED: TRANEXAMIC 1,000 MG/100ML-NACL 1,000 MG in EMPTY BAG 1 BAG IV PRN (14:21)
[2025-01-17] MEDS ORDERED: miSOPROStoL 200 MCG TAB PO PRN (14:21)
[2025-01-17] MEDS: ceFAZolin 2 GM in DEXTROSE 5% IN WATER 50 ML IVPB ONE (16:05)
[2025-01-17] MEDS: CITRIC ACID-SODIUM CITRATE 15 ML CUP PO ONE (16:05)
[2025-01-17] MEDS: LACTATED RINGERS 1,000 ML IV ONE (16:05)
[2025-01-17] MEDS ORDERED: OXYTOCIN 30 UNITS/500 ML NS BAG IV ONE (16:50)
[2025-01-17] MEDS ORDERED: ONDANSETRON 4 MG/2 ML VIAL ONE (16:50)
[2025-01-17] MEDS ORDERED: PHENYLEPHRINE 10 MG/ML VIAL ONE (16:50)
[2025-01-17] MEDS ORDERED: NALBUPHINE (ANES) 10 MG/ML - 1 ML AMP ONE (16:50)
[2025-01-17] MEDS ORDERED: MORPHINE SULFATE (PF) 0.3 MG/0.3 ML SYR ONE (16:50)
--- NOTE | 2025-01-17 17:58 | P.HPOB ---
History of Present Illness H&P Date: 01/17/25 Chief Complaint: IUP at 37 and 1/7 weeks, gestational hypertension This is a 29-year-old 3 para 2-0-0-2 that presents to labor and delivery for preeclampsia workup. Patient was seen in the office with blood pressures noted 162/86. Patient was in OB triage over the weekend with elevated blood pressures in addition. Patient denies headache. Patient notes increasing fatigue and some shortness of breath. Patient was seen in OB triage with 2 elevated blood pressures 1 being 160/102, second 140/90. Patient was counseled on diagnosis of gestational hypertension and need for repeat section. She states she does desire bilateral salpingectomy. patient did have a history of elevated blood pressures after her first in addition. Patient notes good movement, denies vaginal bleeding or loss of fluid. Patient denies contractions. On blood work this patient is a blood type of O+, rubella status immune, hepatitis B surface engine negative, HIV negative, RPR is nonreactive, grew beta strep culture is positive. Review of Systems Constitutional: Denies chills, Denies fatigue, Denies fever Ears, nose, mouth and throat: Denies headache Cardiovascular: Reports leg edema Respiratory: Denies dyspnea Gastrointestinal: Denies nausea, Denies vomiting Genitourinary: Reports Past Medical History Past Medical History: Musculoskeletal Disorder Additional Past Medical History / Comment(s): HX IRREG HR 2012-, ECHO NL. History of Any Multi-Drug Resistant Organisms: None Reported Past Surgical History: Adenoidectomy, Section, Tonsillectomy Additional Past Surgical History / Comment(s): [place] Teeth 2013. Fatty tumor removed from posterior head - childhood Past Anesthesia/Blood Transfusion Reactions: No Reported Reaction Past Psychological History: Anxiety, Depression Additional Psychological History / Comment(s): NO CURRENT [place] Smoking Status: Former smoker Past Alcohol Use History: None Reported Additional Past Alcohol Use History / Comment(s): SMOKED 2 YEARS, 3/4 PPD, QUIT 06/2018 Past Drug Use History: None Reported - Past Family History Mother Family Medical History: Hypertension Medications and Allergies Home Medications Medication Instructions Recorded Confirmed Type Vit No.124/Iron/Folic 2 tab PO DAILY 04/13/15 01/17/25 History [ Vitamin Tablet] Acyclovir [Zovirax] 400 mg PO BID 03/21/19 01/17/25 History Calcium Carbonate [Tums] 750 mg PO QID PRN 03/21/19 01/17/25 History Aspirin [Adult Low Dose Aspirin EC] 81 mg PO DAILY 01/15/25 01/17/25 History Allergies Allergy/AdvReac Type Severity Reaction Status Date / Time tuberculin, purified protein Allergy RED, WELTED Verified 01/17/25 11:40 deriva Exam Osteopathic Statement: *. No significant issues noted on an osteopathic structural exam other than those noted in the History and Physical/Consult. Vital Signs Temp Pulse Resp BP Pulse Ox 01/17/25 14:30 113 H 01/17/25 13:30 97.6 F 85 16 113/64 01/17/25 11:39 97.1 F L 131 H 16 142/78 98 Intake and Output 01/17/25 01/17/25 01/17/25 06:59 14:59 22:59 Other: Weight 111.13 kg Targeted physical exam is performed this date General Is well-nourished well- developed female in no acute distress, breathing appears nonlabored, abdomen is noted to be gravid, cervical exam is deferred, heart tones noted be category 1 and she is not nicolasa. Results Result Diagrams: 01/17/25 12:20 01/17/25 12:20 Abnormal Lab Results - Last 24 Hours (Table) 01/17/25 01/17/25 Range/Units 12:20 12:20 WBC 13.40 H (4.50-10.00) 10*3/uL Immature Gran # 0.25 H (0.00-0.04) 10*3/uL Neutrophils # 9.13 H (1.80-7.70) 10*3/uL Creatinine 0.46 L (0.52-1.04) mg/dL Assessment and Plan (1) 37 weeks gestation of Current Visit: Yes Status: Acute Code(s): Z3A.37 - 37 WEEKS GESTATION OF SNOMED Code(s): 89924552 (2) Gestational hypertension Current Visit: Yes Status: Acute Code(s): O13.9 - GESTATIONAL HTN W/O SIGNIFICANT PROTEINURIA, UNSP TRIMESTER SNOMED Code(s): 13562106 (3) Previous section Current Visit: No Status: Resolved Code(s): Z98.891 - HISTORY OF UTERINE SCAR FROM PREVIOUS SURGERY SNOMED Code(s): 206300541 Plan: 29-year-old 3 para 2 presents for repeat section given diagnosis of gestational hypertension. Patient is noted to be 37 and 1 sevenths weeks, estimated due date 02/06. Surgery is reviewed with patient in detail questions are answered. Risks are reviewed and discussed including but not limited to infection, bleeding, damage to bladder, bowel, injury. Patient states understanding and informed consent is obtained. Anesthesia is notified and into see patient
[2025-01-17] MEDS ORDERED: diphenhydrAMINE 25 MG CAP PO PRN (18:02)
[2025-01-17] MEDS ORDERED: ZOLPIDEM 5 MG TAB PO PRN (18:02)
[2025-01-17] MEDS ORDERED: NALOXONE 0.4 MG/ML 1 ML VIAL IV PRN (18:02)
[2025-01-17] MEDS ORDERED: SIMETHICONE 80 MG CHEWABLE PO PRN (18:02)
[2025-01-17] MEDS ORDERED: METOCLOPRAMIDE 5 MG/ML 2 ML VIAL IVP PRN (18:02)
[2025-01-17] MEDS ORDERED: diphenhydrAMINE 50 MG/ML 1 ML VIAL IVP PRN (18:02)
[2025-01-17] MEDS ORDERED: ONDANSETRON 4 MG/2 ML VIAL IVP PRN (18:02)
[2025-01-17] MEDS ORDERED: diphenhydrAMINE 50 MG CAP PO PRN (18:02)
--- NOTE | 2025-01-17 18:02 | P.OP ---
Date of Procedure: 01/17/25 Preoperative Diagnosis: IUP at 37 and 1 sevenths weeks History of section x 1, desires repeat Gestational hypertension Family-planning desires permanent sterilization Postoperative Diagnosis: Same Procedure(s) Performed: Repeat section with bilateral salpingectomy Anesthesia: spinal Surgeon: Maren Bowers Jewelry Polisher #1: Cristy Xavier Estimated Blood Loss (ml): 608 IV fluids (ml): 750 Urine output (ml): 100 (Clear yellow) Pathology: none sent Condition: stable Disposition: observation Indications for Procedure: History of section x 1 desires repeat with bilateral salpingectomy. Elevated blood pressures 140s to 160s over 90s to 100 Operative Findings: Viable male infant delivered at 1712, weight of 7 pounds 9 ounces, Apgars of 9 and 9 at 1 and 5 minutes respectively. Description of Procedure: The patient was prepped and draped in the usual fashion after spinal anesthesia was administered by the anesthesia department. A Pfannenstiel incision was made and extended of the abdominal cavity without difficulty. The bladder peritoneum was elevated and incised and reflected distally. A 2 cm incision was made in the transverse plane of the lower uterine segment to enter the uterus at which time clear fluid was noted. The incision was extended in both directions using the bandage scissors. The head was encountered within the field and delivered up and through the incision where the nose and mouth were thoroughly suctioned. Remainder of the infant was delivered onto the surgical field where the cord was doubly clamped, cut, and the was passed for resuscitative measures with weight and Apgars as noted above. A segment of cord was then doubly clamped, cut, and set aside should cord gases become necessary. The placenta was delivered manually, intact, and was grossly normal with a grossly normal three-vessel cord. The uterus was exteriorized and the interior cavity of the uterus swept of any remaining placental and membranous fragments with a laparotomy sponge. The margins of the incision were grasped with Roberts clamps and the incision closed in 2 layers. First layer was a running locking layer of 0 Vicryl from margin to margin followed by a second layer of imbricating 0 Vicryl from margin to margin. Any small points of bleeding were then made hemostatic with the Bovie. A small amount of oozing was appreciated therefore Surgicel powder was placed along the hysterotomy site. Once hemostasis was achieved, the posterior cul-de-sac was suctioned with a guard and the uterine and ovarian findings are as noted above. The right fallopian tube was elevated and the LigaSure was used to transect the mesosalpinx to the level of the cornua. This was then repeated on the opposite side. The uterus was replaced within the abdominal cavity and the gutters swept of any remaining blood fluid or clot. The incision was again reexamined and hemostasis was noted to be excellent. Any small point of bleeding were made hemostatic with the Bovie. Once hemostasis was achieved the parietal peritoneum was loosely reapproximated. The layer of muscles were examined and made hemostatic with the Bovie. Attention was then turned to the fascia which was closed with 2 running stitches of 0 Vicryl proceeding from the lateral margins to the midpoint. The subcutaneous tissues were irrigated, made hemostatic with the Bovie, and reapproximated with a running stitch of 30 Vicryl. The skin was reapproximated with 4-0 Vicryl. Estimated blood loss for the case was approximately 608 mL. All sponge instrument and needle counts are correct. There were no complications. The patient tolerated the procedure well and proceeded to the recovery room in stable condition. Both mother and are resting comfortably in recovery. Physician assistant department manager was utilized for the entire procedure due to the need for tissue retraction, dissection of vital structures, prevention and management of blood loss, and reduction in overall operative and anesthesia time as is the standard of care
[2025-01-17] MEDS: LACTATED RINGERS 1,000 ML IV SCH ×3 (18:23→18:53)
[2025-01-17] MEDS: ACETAMINOPHEN IV (For NPO) 1,000 MG in EMPTY BAG 1 BAG IVPB ONE (18:23)
[2025-01-17] MEDS: SENNOSIDES-DOCUSATE SODIUM 1 EACH TAB PO SCH (21:38)
[2025-01-17] MEDS: IBUPROFEN 800 MG TAB PO SCH (21:38)
[2025-01-18] MEDS: ACETAMINOPHEN TAB 500 MG TAB PO SCH (02:06)
[2025-01-18] MEDS: diphenhydrAMINE 50 MG/ML 1 ML VIAL IVP PRN (04:46)
--- NOTE | 2025-01-18 06:18 | P.PN ---
Progress Note - Text Progress Note Date: 01/18/25 This is a 29-year-old lady postop day #1 status post with spinal anesthesia and intrathecal Duramorph. The patient is doing well. She denies any headache, she denies any paresthesia or weakness in the lower extremities, she had some generalized itching in her body however it is resolved now. The patient is able to ambulate with no weakness in the lower extremities.
[2025-01-18 06:32] LABS: Basophils # (A) 0.07 10*3/uL (0.00-0.10); Basophils % (A) 0.5 %; Eosinophils # (A) 0.17 10*3/uL (0.04-0.35); Eosinophils % (A) 1.1 %; HCT 34.5 % (37.2-46.3); HGB 11.4 g/dL (12.0-15.0); Lymphocytes # (A) 2.08 10*3/uL (0.90-5.00); MCH 28.7 pg (27.0-32.0); MCV 86.9 fL (80.0-97.0); Mean Platelet Volume 11.4 fL (9.5-12.2); Monocytes % (A) 4.7 %; Neutrophils # (A) 11.69 10*3/uL (1.80-7.70); Neutrophils % (A) 78.6 %; Platelet Count 178 10*3/uL (140-440); RBC 3.97 10*6/uL (4.10-5.20); RDW 13.4 % (11.5-14.5); WBC 14.87 10*3/uL (4.50-10.00)
--- NOTE | 2025-01-18 08:02 | P.PNOBGPC ---
Subjective - Subjective Principal diagnosis: Postop day 1, repeat section with bilateral salpingectomy Interval history: Patient is doing well postoperatively. She is ambulating without difficulty. Awaiting spontaneous void this morning. She states pain is well-controlled. She denies nausea or vomiting Patient reports: Reports appetite normal, Reports pain well controlled, Reports ambulating normally [place]: doing well Objective - Vital Signs Latest vital signs: Vital Signs Temp Pulse Resp BP Pulse Ox 01/18/25 04:36 97.9 F 65 18 104/67 95 01/18/25 00:17 97.6 F 65 18 112/65 97 01/17/25 19:50 97.6 F 78 16 117/58 99 01/17/25 19:35 52 L 16 122/59 98 01/17/25 19:20 84 16 124/62 99 01/17/25 19:05 82 16 137/65 98 01/17/25 18:50 80 16 118/55 98 01/17/25 18:35 85 16 134/65 98 01/17/25 18:20 88 16 135/70 97 01/17/25 18:05 93 16 137/66 96 01/17/25 17:50 96.5 F L 91 16 144/71 97 01/17/25 14:30 113 H 01/17/25 13:30 97.6 F 85 16 113/64 01/17/25 11:39 97.1 F L 131 H 16 142/78 98 Intake and Output 01/17/25 01/18/25 01/18/25 22:59 06:59 14:59 Output Total 872 600 Balance -872 -600 Output: Urine 600 Uretheral (Miranda) 600 Output, Quantitative 872 Blood Loss - Exam Extremities: Present: normal, edema Abdomen: Present: normal appearance, soft Incision: Present: normal, dry, intact Uterus: Present: normal, firm - Labs Labs: Abnormal Lab Results - Last 24 Hours (Table) 01/17/25 01/17/25 01/18/25 Range/Units 12:20 12:20 06:23 WBC 13.40 H 14.87 H (4.50-10.00) 10*3/uL RBC 3.97 L (4.10-5.20) 10*6/uL Hgb 11.4 L (12.0-15.0) g/dL Hct 34.5 L (37.2-46.3) % Immature Gran # 0.25 H 0.16 H (0.00-0.04) 10*3/uL Neutrophils # 9.13 H 11.69 H (1.80-7.70) 10*3/uL Creatinine 0.46 L (0.52-1.04) mg/dL Assessment and Plan (1) 37 weeks gestation of Current Visit: Yes Status: Acute Code(s): Z3A.37 - 37 WEEKS GESTATION OF SNOMED Code(s): 28710534 (2) Gestational hypertension Current Visit: Yes Status: Acute Code(s): O13.9 - GESTATIONAL HTN W/O SIGNIFICANT PROTEINURIA, UNSP TRIMESTER SNOMED Code(s): 94664837 (3) Previous section Current Visit: No Status: Resolved Code(s): Z98.891 - HISTORY OF UTERINE SCAR FROM PREVIOUS SURGERY SNOMED Code(s): 865030768 Plan: Patient is doing well postoperatively. Will continue to monitor blood pressures closely. Awaiting spontaneous void. Plan to continue routine postoperative care
--- NOTE | 2025-01-19 09:55 | P.PNOBGPC ---
Subjective - Subjective Principal diagnosis: Postop day 2, repeat section Interval history: Patient is overall doing well. She is ambulating and voiding without difficulty. She is tolerating a regular diet without nausea or vomiting. She had 1 elevated blood pressure this morning 140s over 90s. Will continue to monitor closely. Patient denies signs or symptoms of preeclampsia. Patient reports: Reports appetite normal, Reports voiding normally, Reports pain well controlled, Reports ambulating normally : doing well Objective - Vital Signs Latest vital signs: Vital Signs Temp Pulse Resp BP Pulse Ox 01/19/25 08:03 134/82 01/19/25 07:15 98.3 F 100 16 149/91 95 01/19/25 00:15 98.2 F 91 18 125/61 99 01/18/25 17:00 98.2 F 66 16 115/68 98 Intake and Output 01/18/25 01/19/25 01/19/25 22:59 06:59 14:59 Other: # Voids 1 2 2 - Exam Extremities: Present: normal, edema Abdomen: Present: normal appearance, soft Incision: Present: normal, dry, intact Uterus: Present: normal, firm Assessment and Plan (1) 37 weeks gestation of Current Visit: Yes Status: Acute Code(s): Z3A.37 - 37 WEEKS GESTATION OF SNOMED Code(s): 62115247 (2) Gestational hypertension Current Visit: Yes Status: Acute Code(s): O13.9 - GESTATIONAL HTN W/O SIGNIFICANT PROTEINURIA, UNSP TRIMESTER SNOMED Code(s): 93497408 (3) Previous section Current Visit: No Status: Resolved Code(s): Z98.891 - HISTORY OF UTERINE SCAR FROM PREVIOUS SURGERY SNOMED Code(s): 289359994 (4) Status post repeat low transverse section Current Visit: No Status: Acute Code(s): Z98.891 - HISTORY OF UTERINE SCAR FROM PREVIOUS SURGERY SNOMED Code(s): 902247177 Plan: Doing well overall, will monitor blood pressures closely today and consider observation until tomorrow given elevated blood pressure this morning. Awaiting pediatric allergy evaluation as has lost weight since delivery.
--- NOTE | 2025-01-20 09:44 | P.DS ---
Providers Date of admission: 01/17/25 13:27 Expected date of discharge: 01/20/25 Attending physician: Maren Bowers Primary care physician: Stated None - Discharge Diagnosis(es) (1) 37 weeks gestation of Current Visit: Yes Status: Acute (2) Gestational hypertension Current Visit: Yes Status: Acute (3) Previous section Current Visit: No Status: Resolved (4) Status post repeat low transverse section Current Visit: No Status: Acute Hospital Course: This is a 29 yo G3 now P3003 that presented to the office for routine PNV, elevated BP was noted 160's/80's. Patient had been receiving routine care which had been essentially uncomplicated. Patient does have history of a prior section and desired repeat with tubal ligation. Patient was admitted to labor and delivery preeclampsia labs were performed. Negative labs were appreciated continued elevated blood pressures were noted 150s over 90s 140s over 90s. For full details on this patient please see the dictated history and physical. Patient was counseled on diagnosis of gestational hypertension and need to proceed with repeat section at 37 and 1 sevenths weeks. Patient was taken back to the operating suite where repeat section with bilateral salpingectomy was performed. Patient delivered a viable male infant at 1712, weight of 7 pounds 9 ounces, Apgars of 9 and 9 at 1 and 5 minutes respectively. For full details on the please see the dictated operative report. Patient's postoperative course has been essentially uncomplicated. Blood pressures have ranged 120s to 140s over 80s to 90s, some question if the right blood pressure cuff has been used. Will continue to monitor today prior to discharge. Discussed if blood pressures are 140s over 90s will begin labetalol 100 mg twice daily. Patient denies signs or symptoms of preeclampsia. Patient has been ambulating without difficulty. Patient denies nausea or vomiting is tolerating a regular diet. Her lochia is minimal. She is breast and bottlefeeding. Patient Condition at Discharge: Good Plan - Discharge Summary New Discharge Prescriptions: No Action Vit No.124/Iron/Folic [ Vitamin Tablet] 2 tab PO DAILY Calcium Carbonate [Tums] 750 mg PO QID PRN PRN Reason: Heartburn Acyclovir [Zovirax] 400 mg PO BID Aspirin [Adult Low Dose Aspirin EC] 81 mg PO DAILY Discharge Medication List Vit No.124/Iron/Folic [ Vitamin Tablet] 2 tab PO DAILY 04/13/15 [History] Acyclovir [Zovirax] 400 mg PO BID 03/21/19 [History] Calcium Carbonate [Tums] 750 mg PO QID PRN 03/21/19 [History] Aspirin [Adult Low Dose Aspirin EC] 81 mg PO DAILY 01/15/25 [History] Follow up Appointment(s)/Referral(s): Maren Bowers DO [Doctor of Osteopathic Medicine] - 02/01/25 3:15 pm (Post Appointment 03-01-2025 at 11:30am) Patient Instructions/Handouts: (DC), (GEN) Activity/Diet/Wound Care/Special Instructions: No tub baths or intercourse until 6 weeks postoperatively. Routine blood pressure check in 1 week in the office. Oyha-vmy-pwqybrd ibuprofen 600 mg or 3 tablets every 6 hours as needed for pain. Incision care discussed. Discharge Disposition: HOME SELF-CARE
[2025-01-20 16:52] VITALS: RESP 16
[2025-01-20 17:53] VITALS: BP 138/82; PULSE 72; TEMP 98.3
== END 2025-01-20 22:14 | disposition home or self-care (01) | DRG 539 ==
LOC: FBPOP 11:10 → 4FBP 13:27
PROVIDERS: ADMIT Obstetrics & Gynecology Obstetrics; ATTEND Obstetrics & Gynecology Obstetrics
PROC: 0UB70ZZ Excision of Bilateral Fallopian Tubes, Open Approach (ICD-10-PCS; principal; 2025-01-17 17:07)
PROC: 10D00Z1 Extraction of Products of Conception, Low, Open Approach (ICD-10-PCS; principal; 2025-01-17 17:07)
DX: O13.4 Gestational [pregnancy-induced] hypertension without significant proteinuria, complicating childbirth (principal); O34.211 Maternal care for low transverse scar from previous cesarean delivery; Z30.2 Encounter for sterilization; Z37.0 Single live birth; Z3A.37 37 weeks gestation of pregnancy; Z79.82 Long term (current) use of aspirin; Z87.891 Personal history of nicotine dependence; Z28.310 Unvaccinated for COVID-19; Z28.21 Immunization not carried out because of patient refusal; Z71.89 Other specified counseling; Z88.8 Allergy status to other drugs, medicaments and biological substances
CPT/HCPCS: 36415; 59025; 82565; 82570; 83615; 84156; 84450; 84460; 84520; 84550; 85025; 85610; 85730; 86850; 86900; 86901; 88302; 88307; 99215